=== PATIENT | female | born 1930 | race Caucasian/White ===

== ENCOUNTER 2019-04-04 08:25 | Emergency (ER) | payer OTHER, BC ==
[~2019-04-04] VITALS: Ht 162.6 cm; Wt 56.2 kg
[2019-04-04 08:38] VITALS: BP 157/87; Ht 162.6 cm; Wt 56.2 kg
== END 2019-04-04 09:45 | disposition home or self-care (01) ==
LOC: ED 08:25
DX: H93.13 Tinnitus, bilateral (principal); I10 Essential (primary) hypertension; E03.9 Hypothyroidism, unspecified